=== PATIENT | female | born 1955 | race Caucasian/White ===

== ENCOUNTER 2018-04-07 09:23 | Emergency (ER) | payer MEDICARE, BC ==
[~2018-04-07] VITALS: Ht 162.6 cm; Wt 96.0 kg
[2018-04-07] MEDS ORDERED: ondansetron/PF 4mg/2ml inj IV ONE ×2 (09:45→11:10)
[2018-04-07] MEDS ORDERED: HYDROmorphone inj. 0.5 MG/0.5 ML DISP.SYRIN IV PRN (09:45)
[2018-04-07 10:17] LABS: BASOPHILS % (AUTO) 0.3 % (0-1); EOSINOPHILS # (AUTO) 0.3 X10'3 (0-0.9); EOSINOPHILS % (AUTO) 3.7 % (0-6); HEMATOCRIT 38.7 % (35.0-45.0); HEMOGLOBIN 13.2 g/dl (12.0-16.0); LYMPHOCYTES # (AUTO) 1.4 X10'3 (1.1-4.8); LYMPHOCYTES % (AUTO) 17.2 % (21-51); MEAN CORPUSCULAR HEMOGLOBIN 31.3 PG (27.0-31.0); MEAN CORPUSCULAR VOLUME 91.9 FL (78-98); MEAN PLATELET VOLUME 7.2 FL (7.4-10.4); MONOCYTES # (AUTO) 0.5 X10'3 (0-0.9); MONOCYTES % (AUTO) 6.7 % (2-12); NEUTROPHILS # (AUTO) 5.9 X10'3 (1.8-7.7); NEUTROPHILS % (AUTO) 72.1 % (42-75); PLATELET COUNT 349 X10'3 (140-440); RED BLOOD COUNT 4.21 X10'6 (4.20-5.60); RED CELL DISTRIBUTION WIDTH 13.7 % (11.5-14.5); WHITE BLOOD COUNT 8.1 X10'3 (4.5-11.0)
[2018-04-07] MEDS ORDERED: HYDROmorphone 1 mg/ml syringe ONE (10:19)
[2018-04-07 10:25] LABS: ALANINE AMINOTRANSFERASE 19 U/L (12-78); ALBUMIN 3.8 G/DL (3.4-5.0); ALBUMIN/GLOBULIN RATIO 1.1 (1.1-1.5); ALKALINE PHOSPHATASE 74 IU/L (46-116); ANION GAP 9 (8-16); ASPARTATE AMINO TRANSFERASE 13 U/L (10-37); BILIRUBIN,TOTAL 0.6 MG/DL (0.1-1.0); BLOOD UREA NITROGEN 13 MG/DL (7-18); BUN/CREATININE RATIO 13.5 (6.6-38.0); CALCIUM 9.5 MG/DL (8.5-10.1); CHLORIDE 100 MMOL/L (99-107); CREATININE 0.96 MG/DL (0.40-0.90); GLUCOSE 102 MG/DL (70-104); LIPASE 65 U/L (73-393); POTASSIUM 3.8 MMOL/L (3.5-5.1); SODIUM 139 MMOL/L (135-145); TOTAL PROTEIN 7.3 G/DL (6.4-8.2); eGFR 58 ML/MIN
[2018-04-07 10:31] VITALS: BP 157/72
[2018-04-07] MEDS ORDERED: ONDA4TAB6 PO (10:53)
[2018-04-07] MEDS ORDERED: CIPR-259 PO (10:53)
[2018-04-07] MEDS ORDERED: METR500T PO (10:53)
[2018-04-07] MEDS ORDERED: HYDR-3965 PO (10:53)
[2018-04-07] MEDS ORDERED: HYDROmorphone 1 mg/ml syringe IV ONE (11:10)
[2018-04-07 11:12] LABS: CLARITY,URINE CLEAR (Clear); COLOR,URINE YELLOW (Yellow); GLUCOSE, URINE NEGATIVE (Neg); KETONES,URINE NEGATIVE (Neg); LEUKOCYTE ESTERASE ,URINE NEGATIVE (Neg); NITRITES, URINE NEGATIVE (Neg); OCCULT BLOOD,URINE SMALL (Neg); PH,URINE 7.5 (4.8-8.0); PROTEIN,URINE NEGATIVE (Neg); UROBILINOGEN,URINE 0.2 E.U/dL (0.2-1.0)
[2018-04-07 11:21] LABS: BACTERIA,URINE NONE SEEN /HPF (Neg); MUCUS STRANDS NONE SEEN /LPF (Neg); RBC,URINE 0-2 /HPF (0-2); SQUAMOUS EPITHELIAL CELL,UR FEW /LPF (FEW); UA COLLECTION TYPE CLN CATCH MIDSTREAM; WBC,URINE NONE SEEN /HPF (0-4)
== END 2018-04-07 11:36 | disposition home or self-care (01) ==
LOC: ER 09:25
DX: K57.32 Diverticulitis of large intestine without perforation or abscess without bleeding (principal); R91.1 Solitary pulmonary nodule; C50.911 Malignant neoplasm of unspecified site of right female breast; Z91.048 Other nonmedicinal substance allergy status; Z88.1 Allergy status to other antibiotic agents; Z88.8 Allergy status to other drugs, medicaments and biological substances; Z90.49 Acquired absence of other specified parts of digestive tract
CPT/HCPCS: 36415; 74176; 80053; 81001; 83690; 83735; 84484; 85025; 93005; 96374; 96375; 96376; 99284; J1170; J2405

== ENCOUNTER 2020-09-02 07:36 | Outpatient (CLI) | payer MEDICARE, BC ==
[~2020-09-02] VITALS: Ht 162.6 cm; Wt 95.3 kg
[2020-09-02] VITALS (7 sets, daily range): BP systolic 136–168; BP diastolic 52–71
[~2020-09-02 07:36] MED LIST: ONDA4TAB6 PO
[2020-09-02] MEDS ORDERED: regadenoson 0.4mg/5ml syringe IV ONE (08:40)
[2020-09-02] MEDS ORDERED: normal saline 500ml IV soln 500 ML IV ONE (08:40)
== END 2020-09-02 23:59 | disposition home or self-care (01) ==
LOC: RAD 07:36
PROVIDERS: ATTEND Internal Medicine Cardiovascular Disease
DX: Z01.810 Encounter for preprocedural cardiovascular examination (principal); I25.9 Chronic ischemic heart disease, unspecified
CPT/HCPCS: 78452; 93017; A9500; J2785; J7040

== ENCOUNTER 2020-09-22 06:59 | Day surgery (SDC) | payer MEDICARE, BC ==
[2020-09-21 12:43] LABS: BASOPHILS % (AUTO) 0.5 % (0-1); EOSINOPHILS # (AUTO) 0.1 X10'3 (0-0.9); EOSINOPHILS % (AUTO) 2.2 % (0-6); HEMATOCRIT 39.7 % (35.0-45.0); HEMOGLOBIN 13.3 g/dl (12.0-16.0); LYMPHOCYTES # (AUTO) 1.4 X10'3 (1.1-4.8); LYMPHOCYTES % (AUTO) 22.7 % (21-51); MEAN CORPUSCULAR HEMOGLOBIN 32.4 PG (27.0-31.0); MEAN CORPUSCULAR HGB CONC 33.6 g/dL (33.0-36.5); MEAN CORPUSCULAR VOLUME 96.4 FL (78-98); MEAN PLATELET VOLUME 6.8 FL (7.4-10.4); MONOCYTES # (AUTO) 0.4 X10'3 (0-0.9); MONOCYTES % (AUTO) 6.4 % (2-12); NEUTROPHILS # (AUTO) 4.1 X10'3 (1.8-7.7); NEUTROPHILS % (AUTO) 68.2 % (42-75); PLATELET COUNT 300 X10'3 (140-440); RED BLOOD COUNT 4.12 X10'6 (4.20-5.60); RED CELL DISTRIBUTION WIDTH 13.6 % (11.5-14.5)
[2020-09-21 12:58] LABS: ALBUMIN 3.8 G/DL (3.4-5.0); ANION GAP 6 (8-16); BLOOD UREA NITROGEN 12 MG/DL (7-18); CALCIUM 8.9 MG/DL (8.5-10.1); CHLORIDE 105 MMOL/L (99-107); CREATININE 1.09 MG/DL (0.40-0.90); GLUCOSE 101 MG/DL (70-104); SODIUM 142 MMOL/L (135-145); TOTAL CARBON DIOXIDE 30.7 MMOL/L (24-32); eGFR 50 ML/MIN
[~2020-09-22] VITALS: Ht 160 cm; Wt 99.9 kg
[2020-09-22] VITALS (11 sets, daily range): BP systolic 122–156; BP diastolic 50–74
[2020-09-22] MEDS ORDERED: normal saline 1,000 ML IV SCH ×2 (07:20→12:20)
[2020-09-22] MEDS ORDERED: LIDOcaine/PRILOcaine 5gm cream TP ONE (07:20)
[2020-09-22] MEDS ORDERED: diphenhydrAMINE 25mg capsule PO PRN (07:20)
[2020-09-22] MEDS ORDERED: LORazepam 0.5 MG tablet PO PRN (07:20)
[2020-09-22] MEDS ORDERED: HYDR12.55 PO (07:35)
[2020-09-22] MEDS ORDERED: ONDA4TAB12 PO (07:35)
[2020-09-22] MEDS ORDERED: BUDE10.26 (07:35)
[2020-09-22] MEDS ORDERED: ALBU18HF2 (07:35)
[2020-09-22] MEDS ORDERED: DIPH-1055 PO (07:35)
[2020-09-22] MEDS ORDERED: TAMO20TA4 PO (07:35)
[2020-09-22] MEDS ORDERED: FAMO20TA8 (07:35)
[2020-09-22] MEDS ORDERED: ENAL-76 PO (07:35)
[2020-09-22] MEDS ORDERED: PRED20TA PO (07:35)
[2020-09-22] MEDS ORDERED: HYDR-3972 PO (07:35)
[2020-09-22] MEDS ORDERED: fentaNYL/PF 50MCG/1 ML 2ML syringe ONE (10:16)
[2020-09-22] MEDS ORDERED: LIDOcaine 1% (10mg/ml)w/preservative injection 20ml MDV ONE (10:16)
[2020-09-22] MEDS ORDERED: iohexol 350 MG/ML 50ML vial IV ONE (10:16)
[2020-09-22] MEDS ORDERED: iohexol 350MG/ML 100ml bottle IV ONE (10:16)
[2020-09-22] MEDS ORDERED: midazolam 1 mg/ML 2ml injection ONE (10:16)
[2020-09-22] MEDS ORDERED: verapamil 2.5 mg/ml inj IV ONE (10:16)
[2020-09-22] MEDS ORDERED: heparin 1,000unit/ml 10ml vial 10 ML ONE (10:16)
[2020-09-22] MEDS ORDERED: nitroGLYCERIN-Tridil 50MG/D5W 250 ML IV ONE (10:17)
[2020-09-22 11:25] LABS: ISTAT HGB ART 12.2 g/dl (12.0-16.0); ISTAT Hct ART 36 %PCV (35-48); ISTAT O2 SATURATION ARTERIAL 97 % (95-98); ISTAT SOURCE ART
[2020-09-22] MEDS ORDERED: nitroGLYCERIN 0.4mg SUBLingual tab SL ONE (11:27)
[2020-09-22 13:18] LABS: ISTAT Hct MIX 36 %PCV (35-48); ISTAT O2 SATURATION MIX VENOUS 80 % (60-80); ISTAT SOURCE BLNK
== END 2020-09-22 16:55 | disposition home or self-care (01) ==
LOC: SSTAY O 06:59
PROVIDERS: ATTEND Internal Medicine Cardiovascular Disease
DX: R94.39 Abnormal result of other cardiovascular function study (principal); I25.10 Atherosclerotic heart disease of native coronary artery without angina pectoris; I10 Essential (primary) hypertension; E78.5 Hyperlipidemia, unspecified; J44.9 Chronic obstructive pulmonary disease, unspecified; G89.29 Other chronic pain; M19.90 Unspecified osteoarthritis, unspecified site; Z85.3 Personal history of malignant neoplasm of breast; Z90.710 Acquired absence of both cervix and uterus; Z98.890 Other specified postprocedural states; Z90.49 Acquired absence of other specified parts of digestive tract; Z87.891 Personal history of nicotine dependence; Z72.89 Other problems related to lifestyle; Z79.899 Other long term (current) drug therapy; Z79.01 Long term (current) use of anticoagulants; Z88.8 Allergy status to other drugs, medicaments and biological substances
CPT/HCPCS: 36415; 76937; 80048; 82803; 85014; 85025; 85610; 93005; 93460; 99152; 99153; C1769; C1894; J1644; J2001; J2250; J3010; J7030; Q0163; Q9967; A4620; A6258; C1751; J3490